=== PATIENT | female | born 1980 | race Two or more races ===

== ENCOUNTER 2016-12-13 14:10 | Observation (INO) | payer MEDICAID | END 2016-12-13 16:20 | disposition home or self-care (01) | DRG 566 | LOC: LDRP 14:10 | PROVIDERS: ADMIT Specialist; ATTEND Specialist | DX: O24.410 Gestational diabetes mellitus in pregnancy, diet controlled (principal); O09.523 Supervision of elderly multigravida, third trimester; Z3A.36 36 weeks gestation of pregnancy | CPT/HCPCS: 76818; 82962; G0378; 59025; 81002; 82948 ==

== ENCOUNTER 2016-12-17 14:30 | Observation (INO) | payer MEDICAID ==
[2016-12-17 16:13] LABS: Urine Bilirubin Negative (Negative); Urine Color Yellow (Yellow); Urine Glucose Normal (Normal); Urine Ketone Negative (Negative); Urine Mucus FEW (None Seen); Urine Nitrite Negative (Negative); Urine RBC 34 /hpf (0 - 4); Urine Squamous Epithelial Cell MOD /hpf (<5); Urine pH 6.5 (5.0-8.0)
[2016-12-17 16:14] LABS: Urine Blood 1+ /uL (Negative)
== END 2016-12-17 16:45 | disposition home or self-care (01) | DRG 566 ==
LOC: LDRP 14:30
PROVIDERS: ADMIT Specialist; ATTEND Specialist
DX: O62.9 Abnormality of forces of labor, unspecified (principal); O24.410 Gestational diabetes mellitus in pregnancy, diet controlled; Z3A.36 36 weeks gestation of pregnancy
CPT/HCPCS: 59025; 76818; 81001; 81002; G0378

== ENCOUNTER 2016-12-20 11:42 | Observation (INO) | payer MEDICAID | END 2016-12-20 14:05 | disposition home or self-care (01) | DRG 566 | LOC: LDRP 11:42 | PROVIDERS: ADMIT Obstetrics & Gynecology; ATTEND Obstetrics & Gynecology | DX: O26.893 Other specified pregnancy related conditions, third trimester (principal); R10.9 Unspecified abdominal pain; O24.410 Gestational diabetes mellitus in pregnancy, diet controlled; Z3A.37 37 weeks gestation of pregnancy | CPT/HCPCS: 59025; 76818; 81002; G0378 ==

== ENCOUNTER 2016-12-26 14:55 | Observation (INO) | payer MEDICAID | END 2016-12-26 16:35 | disposition home or self-care (01) | DRG 566 | LOC: LDRP 14:55 | PROVIDERS: ADMIT Specialist; ATTEND Specialist | DX: O24.419 Gestational diabetes mellitus in pregnancy, unspecified control (principal); Z3A.38 38 weeks gestation of pregnancy | CPT/HCPCS: 59025; 76818; 81002; G0378 ==

== ENCOUNTER 2016-12-30 11:00 | Observation (INO) | payer MEDICAID | END 2016-12-30 14:05 | disposition home or self-care (01) | DRG 566 | LOC: LDRP 11:00 | PROVIDERS: ADMIT Specialist; ATTEND Specialist | DX: O24.419 Gestational diabetes mellitus in pregnancy, unspecified control (principal); Z3A.38 38 weeks gestation of pregnancy | CPT/HCPCS: 59025; 76818; 81002; 82962; G0378 ==

== ENCOUNTER → 2017-01-04 13:45 | Observation (INO) | payer MEDICAID ==
[~2017-01-04 13:45] MED LIST: PREN-96 PO
== END | disposition home or self-care (01) | DRG 566 ==
LOC: LDRP 13:45
PROVIDERS: ADMIT Obstetrics & Gynecology; ATTEND Obstetrics & Gynecology
DX: O24.419 Gestational diabetes mellitus in pregnancy, unspecified control (principal); Z3A.39 39 weeks gestation of pregnancy
CPT/HCPCS: 59025; 76818; 81002; G0378

== ENCOUNTER 2017-10-03 09:29 | Emergency (ER) | payer MEDICAID ==
[~2017-10-03] VITALS: Ht 154.9 cm; Wt 95.3 kg
[2017-10-03 10:49] VITALS: BP 122/65
[2017-10-03] MEDS ORDERED: cefTRIAXone SOD 1,000 MG VL IM ONE (11:45)
== END 2017-10-03 11:56 | disposition home or self-care (01) ==
LOC: ER 09:29
DX: J03.90 Acute tonsillitis, unspecified (principal); Z91.010 Allergy to peanuts; Z79.899 Other long term (current) drug therapy
CPT/HCPCS: 96372; 99283; J0696

== ENCOUNTER 2022-01-15 09:23 | Emergency (ER) | payer OTHER ==
[~2022-01-15] VITALS: Ht 154.9 cm; Wt 104.3 kg
[2022-01-15] MEDS ORDERED: CYCL-837 PO ×2 (12:58→15:17)
[2022-01-15] MEDS ORDERED: ACET-1158 PO ×2 (12:58→15:17)
[2022-01-15 13:02] VITALS: BP 103/52
== END 2022-01-15 13:47 | disposition home or self-care (01) ==
LOC: ER 09:23
DX: S16.1XXA Strain of muscle, fascia and tendon at neck level, initial encounter (principal); S29.012A Strain of muscle and tendon of back wall of thorax, initial encounter; R51.9 Headache, unspecified; J45.909 Unspecified asthma, uncomplicated; Z91.010 Allergy to peanuts; V43.52XA Car driver injured in collision with other type car in traffic accident, initial encounter; Y93.89 Activity, other specified; Y92.410 Unspecified street and highway as the place of occurrence of the external cause; Y99.8 Other external cause status
CPT/HCPCS: 70450; 72070; 72125